=== PATIENT | female | born 1985 ===

== ENCOUNTER 2017-04-12 09:40 | Day surgery (SDC) | payer BC ==
[2017-04-06 11:05] VITALS: BMI 25.9
[2017-04-12] MEDS ORDERED: cefOXitin IV 2 gm in Dextrose 2 GM/50 ML BAG IVPB ONE (12:52)
[2017-04-12] MEDS ORDERED: Bupivacaine HCl 0.5% PF (10 ml) Inj ONE (12:52)
[2017-04-12] MEDS ORDERED: Lactated Ringer's 1,000 ML IV ONE ×2 (13:00→14:20)
[2017-04-12] MEDS ORDERED: Midazolam 2 MG/2 ML VIAL ONE (13:06)
[2017-04-12] MEDS ORDERED: Propofol 10 mg/ml Inj (20 ML) ONE (13:06)
[2017-04-12] MEDS ORDERED: Succinylcholine Chloride 20 mg/ml Syr (5 ml) IV ONE (13:28)
[2017-04-12] MEDS ORDERED: Rocuronium 10 mg/ml (5 ml) ONE (13:28)
[2017-04-12] MEDS ORDERED: Neostigmine Methylsulfate 3mg/3ml Syringe IV ONE (13:28)
--- NOTE | 2017-04-12 14:19 | PCM.SURG1 ---
Surgeon's Initial Post Op Note - Surgeon's Notes Surgeon: Dr. Tobar [employer] Analyst: Type of Anesthesia: General Endo Anesthesia Administered By: Dr. Rebollar Pre-Operative Diagnosis: 31 yo that desires permanent sterilization , chronic pelvic pain, Chronic salpingitis Operative Findings: Multiple adhesion Av uterus , nl ovaries, Peutz hugs vidya Post-Operative Diagnosis: same as above Operation Performed: Laparoscopic Bilateral Salpingectomy, Lysis of adhesion Specimen/Specimens Removed: Bilateral tubes Estimated Blood Loss: EBL {In ML}: 10 Blood Products Given: N/A Drains Used: No Drains Post-Op Condition: Good Date of Surgery/Procedure: 04/12/17 Time of Surgery/Procedure: 14:19
[2017-04-12] MEDS ORDERED: HYDROmorphone 0.5 mg/0.5 ml ISec IVP PRN (14:23)
[2017-04-12 14:42] VITALS: O2SAT 100
[2017-04-12 16:43] VITALS: RESP 16; TEMP 97.2
[2017-04-12 19:01] VITALS: BP 102/62; PULSE 99
--- NOTE | 2017-04-13 02:32 | OP ---
PROCEDURE DATE: 04/12/2017 PREOPERATIVE DIAGNOSES: A 31-year-old female with desired permanent sterilization, chronic pelvic pain, chronic salpingitis. POSTOPERATIVE DIAGNOSES: A 31-year-old female with desired permanent sterilization, chronic pelvic pain, chronic salpingitis. PROCEDURES: Laparoscopic bilateral salpingectomy, lysis of adhesions. SURGEON: Dr. Tobar. ORAL AND MAXILLOFACIAL SURGERY: Dr. Wolfe. TYPE OF ANESTHESIA: General LMA. ANESTHESIOLOGIST: Dr. Bender. COMPLICATIONS: None. ESTIMATED BLOOD LOSS: 10 mL. INTRAVENOUS FLUIDS: 1100. URINE OUTPUT: 200 mL. SPECIMEN: Right and left tube. DESCRIPTION OF PROCEDURE: The patient was informed of the risk, benefits, and alternatives of the procedure. Risk factors included infection, bleeding, damage of surrounding organs and tissues, complications from anesthesia, and possible . After informed consent was obtained, she was then taken to the operating room, prepped and draped in normal sterile fashion, placed in dorsal lithotomy position. A weighted-speculum was placed into the vagina and the anterior lip of the cervix was grasped with a single-toothed tenaculum. The uterus was gently sounded to approximately 8 cm. A HUMI was then placed in order to manipulate the uterus. Once that was completed, the weighted speculum and tenaculum were then removed. Attention was then turned to the abdomen. Open laparoscopy approach was performed due to the history of prior surgeries. Once we were into the abdominal cavity under direct visualization, 4 liters of CO2 gas was given and a surveillance of the uterine cavity was then performed and noted she had multiple adhesions due to prior surgery. In that particular instance, a right and a left trocar was placed under direct visualization and no complication was noted. In that particular instance, attention was then turned to the right tube, which was followed all the way down to her fimbriated end with the LigaSure device, was used to transect the mesosalpinx inferior to the fallopian tube, then trisected the fallopian tube proximal end, that was then removed. The same was done to the left tube. Using the LigaSure, it was removed. Excellent hemostasis was noted. It was then removed with the help of Dr. Wolfe to the EndoCatch with the trocar. Upon completion, all trocars were removed off the abdomen. But, prior to that, irrigation was then performed. Everything was hemodynamically stable. There was no bleeding noted. The incision was closed with 4-0 Monocryl. Instruments and lap counts were correct x2. The patient was then taken to recovery room in stable condition and instructed to follow up in the office in approximately 2 weeks. Kyleigh Tobar MD
== END 2017-04-12 19:04 | disposition home or self-care (01) ==
LOC: C.SDS 09:40
PROVIDERS: ATTEND Obstetrics & Gynecology
DX: Z30.2 Encounter for sterilization (principal); N70.11 Chronic salpingitis; G89.29 Other chronic pain
CPT/HCPCS: 58661; 88305; J0694; J1170; J1885; J2250; J2405; J2704; J2710; J3010; J7120

== ENCOUNTER 2017-06-09 10:36 | Emergency (ER) | payer BC ==
[2017-06-09 10:37] VITALS: BMI 25.9
[2017-06-09 13:37] LABS: HCG,QUALITATIVE URINE NEGATIVE (NEGATIVE)
--- NOTE | 2017-06-09 13:48 | C.PDOC ---
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 Patient admits to chronic headache for which she takes ibuprofen and was referred to ENT specialist by PMD since diagnosis of Rhinoscleroma is unsure. Patient has pending biopsy results and currently denies vomiting, diarrhea, congestion, cough, change in vision or any other complaints at this time. Time Seen by Provider: 06/09/17 13:08 Chief Complaint (Nursing): Dizziness/Lightheaded History Per: Patient History/Exam Limitations: no limitations Onset/Duration Of Symptoms: Days Current Symptoms Are (Timing): Still Present Past Medical History Reviewed: Historical Data, Nursing Documentation, Vital Signs Vital Signs: Last Vital Signs Temp 98.1 F 06/09/17 11:00 Pulse 73 06/09/17 11:00 Resp 18 06/09/17 11:00 BP 100/68 06/09/17 11:00 Pulse Ox 98 06/09/17 15:03 - Medical History PMH: Gall Bladder Disease, HTN, Malignancy (ovarian ) Surgical History: Cholecystectomy Family History: States: No Known Family Hx - Social History Hx Alcohol Use: No Hx Substance Use: No - Immunization History Hx Tetanus Toxoid Vaccination: No Hx Influenza Vaccination: Yes Hx Pneumococcal Vaccination: No Review Of Systems Constitutional: Negative for: Fever, Chills Cardiovascular: Positive for: Light Headedness Respiratory: Negative for: Cough Gastrointestinal: Negative for: Nausea, Vomiting Neurological: Positive for: Weakness, Headache, Dizziness. Negative for: Numbness Physical Exam - Physical Exam Appears: Non-toxic, No Acute Distress Skin: Warm, Dry, No Rash Head: Atraumatic, Normacephalic Eye(s): bilateral: Normal Inspection Oral Mucosa: Moist Neck: Normal ROM, Supple Cardiovascular: Rhythm Regular Respiratory: Normal Breath Sounds, No Rales, No Rhonchi, No Wheezing Gastrointestinal/Abdominal: Soft, No Tenderness, No Guarding, No Rebound Neurological/Psych: Oriented x3, Normal Speech, Normal Cognition, Normal Motor, Normal Sensation Gait: Steady ED Course And Treatment - Laboratory Results Result Diagrams: 06/09/17 13:44 06/09/17 13:44 Lab Interpretation: Abnormal (CBC and CMP unremarkable. Urine has moderate bacteria and is nitrite +) O2 Sat by Pulse Oximetry: 98 (RA) Pulse Ox Interpretation: Normal - CT Scan/US CT head Other Rad Studies (CT/US): Read By Radiologist, Radiology Report Reviewed CT/US Interpretation: Accession No. : [id number]. Patient Name / ID : PABLITO CORONA / [id number]. Exam Date : 06/09/2017 14:42:26 ( Approved ). Study Comment : Sex / Age : F / 31Y. Creator : Karli Gautam. Dictator : Brenda Zapien MD. Direct Marketing Manager : Sheriffs Officer : Brenda Zapien MD. Approver2 : Report Date : 06/09/2017 15:00:52. My Comment : . PROCEDURE: CT HEAD WITHOUT CONTRAST. HISTORY: Headache. COMPARISON: None available. TECHNIQUE: Axial computed tomography images were obtained through the head/brain without intravenous contrast. Radiation dose: Total exam DLP = 822.35 mGy-cm. This CT exam was performed using one or more of the following dose reduction techniques: Automated exposure control, adjustment of the mA and/or kV according to patient size, and/or use of iterative reconstruction technique. FINDINGS: HEMORRHAGE: No intracranial hemorrhage. BRAIN: No mass effect or edema. No atrophy or chronic microvascular ischemic changes. VENTRICLES: No hydrocephalus. CALVARIUM: Unremarkable. PARANASAL SINUSES: Unremarkable as visualized. No significant inflammatory changes. MASTOID AIR CELLS: Unremarkable as visualized. No inflammatory changes. OTHER FINDINGS: None. IMPRESSION: No acute intracranial pathology identified. Reevaluation Time: 15:16 Reassessment Condition: Improved (Patient is in no distress but still c/o feeling weak.) Disposition Counseled Patient/Family Regarding: Studies Performed, Diagnosis, Need For Followup, Rx Given - Disposition Referrals: Crissy Craven MD [Medical Doctor] - Disposition: HOME/ ROUTINE Disposition Time: 15:21 Condition: STABLE Prescriptions: Nitrofurantoin Macrocrystals [Macrobid] 1 cap PO BID #14 cap Instructions: General Headache (ED), Urinary Tract Infection in Women (ED) Forms: [employer] (Lithuanian) Print Language: CHILEAN - Clinical Impression Clinical Impression: Headache, UTI (urinary tract infection) - Scribe Statement The provider has reviewed the documentation as recorded by the Mitchellibgaetano Soni All medical record entries made by the Mitchellibgaetano were at my direction and personally dictated by me. I have reviewed the chart and agree that the record accurately reflects my personal performance of the history, physical exam, medical decision making, and the department course for this patient. I have also personally directed, reviewed, and agree with the discharge instructions and disposition.
[2017-06-09 13:49] LABS: BASO % 0.7 % (0.0-2.0); EOS # 0.4 K/uL (0.0-0.7); EOS % 7.1 % (0.0-4.0); HEMOGLOBIN 13.8 g/dL (11.0-16.0); LYMPH # 2.4 K/uL (1.0-4.3); LYMPH % 42.4 % (20.0-40.0); MEAN CELL VOLUME 85.4 fL (81.0-99.0); MEAN CORPUSCULAR HEMOGLOBIN 30.1 pg (27.0-31.0); MEAN CORPUSCULAR HGB CONC 35.2 g/dL (33.0-37.0); MONO # 0.3 K/uL (0.0-0.8); MONO % 5.4 % (0.0-10.0); NEUT # 2.5 K/uL (1.8-7.0); NEUT % 44.4 % (50.0-75.0); RBC 4.58 Mil/uL (3.80-5.20); RED CELL DISTRIBUTION WIDTH 12.5 % (11.5-14.5); WHITE BLOOD COUNT 5.6 K/uL (4.8-10.8)
[2017-06-09 14:00] LABS: BLOOD UREA NITROGEN 9 mg/dL (7-17); GFR AFRICAN-AMERICAN > 60; GFR NON-AFRICAN AMERICAN > 60
[2017-06-09 14:01] LABS: ALB/GLOB RATIO 1.2 (1.0-2.1); ALT/SGPT 44 U/L (9-52); AST/SGOT 26 U/L (14-36)
[2017-06-09 14:16] LABS: SQUAMOUS EPITHIAL 21 /hpf (0-5); URINE BACTERIA MANY (<OCC); URINE BILIRUBIN NEGATIVE (NEGATIVE); URINE BLOOD NEGATIVE (NEGATIVE); URINE CLARITY Hazy (Clear); URINE COLOR Yellow (YELLOW); URINE GLUCOSE (UA) NORMAL (Normal); URINE LEUKOCYTE ESTERASE NEG Leu/uL (Negative); URINE NITRATE POSITIVE (NEGATIVE); URINE PROTEIN NEGATIVE (NEGATIVE); URINE UROBILINOGEN NORMAL mg/dL (0.2-1.0)
--- NOTE | 2017-06-09 15:12 | CT ---
PROCEDURE: CT HEAD WITHOUT CONTRAST. HISTORY: Headache COMPARISON: None available. TECHNIQUE: Axial computed tomography images were obtained through the head/brain without intravenous contrast. Radiation dose: Total exam DLP = 822.35 mGy-cm. This CT exam was performed using one or more of the following dose reduction techniques: Automated exposure control, adjustment of the mA and/or kV according to patient size, and/or use of iterative reconstruction technique. FINDINGS: HEMORRHAGE: No intracranial hemorrhage. BRAIN: No mass effect or edema. No atrophy or chronic microvascular ischemic changes. VENTRICLES: No hydrocephalus. CALVARIUM: Unremarkable. PARANASAL SINUSES: Unremarkable as visualized. No significant inflammatory changes. MASTOID AIR CELLS: Unremarkable as visualized. No inflammatory changes. OTHER FINDINGS: None. IMPRESSION: No acute intracranial pathology identified.
[2017-06-09 15:33] VITALS: BP 106/73; PULSE 62; RESP 20; TEMP 98.6; O2SAT 99
== END 2017-06-09 15:35 | disposition home or self-care (01) ==
LOC: C.ER 10:36
DX: R51 Headache (principal); N39.0 Urinary tract infection, site not specified; I10 Essential (primary) hypertension

== ENCOUNTER 2018-07-05 10:19 | Observation (INO) | payer BC ==
[2018-07-05 10:31] VITALS: BMI 28.3
[2018-07-05 10:56] LABS: BASO % 0.8 % (0.0-2.0); EOS # 0.4 K/uL (0.0-0.7); EOS % 7.6 % (0.0-4.0); HEMOGLOBIN 12.7 g/dL (11.0-16.0); LYMPH # 1.7 K/uL (1.0-4.3); LYMPH % 33.1 % (20.0-40.0); MEAN CORPUSCULAR HEMOGLOBIN 25.9 pg (27.0-31.0); MEAN CORPUSCULAR HGB CONC 32.2 g/dL (33.0-37.0); MEAN PLATELET VOLUME 9.6 fL (7.2-11.7); MONO # 0.3 K/uL (0.0-0.8); MONO % 6.6 % (0.0-10.0); NEUT # 2.7 K/uL (1.8-7.0); NEUT % 51.9 % (50.0-75.0); NRBC % 0.1 % (0.0-2.0); RBC 4.9 Mil/uL (3.80-5.20); RED CELL DISTRIBUTION WIDTH 14.6 % (11.5-14.5); WHITE BLOOD COUNT 5.1 K/uL (4.8-10.8)
[2018-07-05 10:57] LABS: MEAN CELL VOLUME 80.3 fL (81.0-99.0)
[2018-07-05 11:04] LABS: INR 1.1; PROTHROMBIN TIME 11.7 SECONDS (9.7-12.2)
--- NOTE | 2018-07-05 11:06 | CT ---
Date of service: 07/05/2018 PROCEDURE: CT HEAD WITHOUT CONTRAST. HISTORY: Code Stroke COMPARISON: None available. TECHNIQUE: Axial computed tomography images were obtained through the head/brain without intravenous contrast. Radiation dose: Total exam DLP = 1055.49 mGy-cm. This CT exam was performed using one or more of the following dose reduction techniques: Automated exposure control, adjustment of the mA and/or kV according to patient size, and/or use of iterative reconstruction technique. FINDINGS: HEMORRHAGE: No acute parenchymal, subarachnoid or extra-axial hemorrhage. BRAIN: No evidence of large acute infarct. No significant r chronic microvascular ischemic changes identified. Note the possibility of a small hyperacute infarct cannot be excluded on this exam. VENTRICLES: No obstructive hydrocephalus. CALVARIUM: Unremarkable. PARANASAL SINUSES: Unremarkable as visualized. No significant calvarium intact inflammatory changes. MASTOID AIR CELLS: Unremarkable as visualized. No inflammatory changes. OTHER FINDINGS: None. IMPRESSION: No acute intracranial hemorrhage. No evidence of large acute infarct. No significant microvascular ischemic disease.. Note that the possibility of a small hyperacute infarct cannot excluded on this study. These findings discussed with Dr. Dewitt at 10:58 a.m. with written down and read back verification.
[2018-07-05 11:21] LABS: ALB/GLOB RATIO 1.6 (1.0-2.1); ALBUMIN 4.4 g/dL (3.5-5.0); ALT/SGPT 36 U/L (9-52); AST/SGOT 31 U/L (14-36); BLOOD UREA NITROGEN 8 mg/dL (7-17); CALCIUM 8.5 mg/dl (8.6-10.4); GFR NON-AFRICAN AMERICAN > 60; HDL CHOLESTEROL 32 mg/dL (30-70)
--- NOTE | 2018-07-05 11:28 | CT ---
Date of service: 2018-07-05 10:56:23 PROCEDURE: CT Angiography of the neck and brain HISTORY: Code stroke COMPARISON: None. TECHNIQUE: Contiguous axial images of the neck were obtained from the level of the vertex of the skull to the superior mediastinum in the arteriographic phase of enhancement. Coronal and sagittal reformats or also generated. IV contrast dose: 100 cc Visipaque 320 Radiation dose: Total exam DLP = 520.56 mGy-cm. This CT exam was performed using one or more of the following dose reduction techniques: Automated exposure control, adjustment of the mA and/or kV according to patient size, and/or use of iterative reconstruction technique. FINDINGS: The aortic arch widely patent with no significant atherosclerotic plaque. The right brachiocephalic and left common carotid artery arise from a common trunk. The common carotid arteries and carotid bifurcations are widely patent with no evidence of significant stenosis. No evidence of dissection. The distal internal carotid arteries including the petrous cavernous and supraclinoid segments also widely patent. Both vertebral arteries are patent throughout neither which appear more dominant than the other. Basilar artery is patent. The visualized major branches of the mwwutt-ai-Gwuhac are also patent with no evidence of occlusions nor significant stenosis. No evidence of large aneurysm seen along the avuqyd-qc-Yarael.. No evidence of vascular malformation. The distal branches of the anterior middle and posterior cerebral arteries are relatively symmetric. OTHER FINDINGS: There is a small calcification seen in the upper/mid aspect of the right lobe of the thyroid gland. Consider follow-up thyroid ultrasound further evaluation. IMPRESSION: Normal CT Angiography of the neck.
[2018-07-05 11:33] LABS: LDL CHOLESTEROL 77 mg/dL (0-129)
--- NOTE | 2018-07-05 12:19 | RAD ---
Date of service: 2018-07-05 11:13:46 HISTORY: Code Stroke COMPARISON: No prior. FINDINGS: LUNGS: No active pulmonary disease. PLEURA: No significant pleural effusion identified, no pneumothorax apparent. CARDIOVASCULAR: No aortic atherosclerotic calcification present. Normal cardiac size. No pulmonary vascular congestion. OSSEOUS STRUCTURES: No significant abnormalities. VISUALIZED UPPER ABDOMEN: Normal. OTHER FINDINGS: None. IMPRESSION: No active disease.
--- NOTE | 2018-07-05 14:24 | C.PDOC ---
History Of Present Illness 33 y/o female presents to ER for evaluation of syncopal episode which occurred earlier at home today. Upon arrival in triage, patient states that she had a neurological event involving facial palsy while she was in [place] 3 years ago. Therefore, Code Stroke was called for patient. Patient reports that she has headache and dizziness for the past few days.Patient notes that she had syncopal episode after she got up from her bed in the morning today. She landed on the ground and hit her head on the left side. Her helped her get up. he is still complaining of headache and mild dizziness. Denies having CP,SOB, nausea, vomiting, and abdominal pain. Of note, patient has history of tubal ligation. Chief Complaint (Nursing): Dizziness/Lightheaded History Per: Patient History/Exam Limitations: no limitations Onset/Duration Of Symptoms: Days Current Symptoms Are (Timing): Still Present Severity: Moderate Past Medical History Reviewed: Historical Data, Nursing Documentation, Vital Signs Vital Signs: Last Vital Signs Temp 98.3 F 07/05/18 10:34 Pulse 63 07/05/18 12:37 Resp 12 07/05/18 12:37 BP 101/57 L 07/05/18 12:37 Pulse Ox 100 07/05/18 12:37 - Medical History PMH: Gall Bladder Disease, HTN, Malignancy (ovarian ) Denies: Diabetes, Hepatitis Surgical History: Cholecystectomy Family History: States: No Known Family Hx - Social History Hx Alcohol Use: No Hx Substance Use: No - Immunization History Hx Tetanus Toxoid Vaccination: No Hx Influenza Vaccination: Yes (2018) Hx Pneumococcal Vaccination: No Review Of Systems Except As Marked, All Systems Reviewed And Found Negative. Constitutional: Negative for: Fever, Chills Cardiovascular: Negative for: Chest Pain Respiratory: Negative for: Shortness of Breath Gastrointestinal: Negative for: Nausea, Vomiting, Abdominal Pain Neurological: Positive for: Headache, Dizziness Physical Exam - Physical Exam Appears: Non-toxic, No Acute Distress, Other (awake,alert,groggy) Skin: Normal Color, Warm, Dry Head: Atraumatic, Normacephalic Eye(s): bilateral: Normal Inspection, PERRL, EOMI Ear(s): Bilateral: Normal Nose: Normal Oral Mucosa: Moist Throat: Normal, No Erythema Neck: Supple Chest: Symmetrical Cardiovascular: Rhythm Regular Respiratory: Normal Breath Sounds, No Rales, No Wheezing Gastrointestinal/Abdominal: Normal Exam, Soft, No Tenderness, No Guarding, No Rebound Extremity: Normal ROM Neurological/Psych: Oriented x3, Normal Speech, Normal Motor, Normal Sensation Gait: Steady ED Course And Treatment - Laboratory Results Result Diagrams: 07/05/18 10:52 07/05/18 10:52 Lab Results: PT 11.7 SECONDS (9.7-12.2) 07/05/18 10:52 INR 1.1 07/05/18 10:52 APTT 33 SECONDS (21-34) 07/05/18 10:52 Troponin I < 0.0120 ng/mL (0.00-0.120) 07/05/18 10:52 Total Bilirubin 1.1 mg/dL (0.2-1.3) 07/05/18 10:52 AST 31 U/L (14-36) 07/05/18 10:52 ALT 36 U/L (9-52) 07/05/18 10:52 Alkaline Phosphatase 78 U/L (38-126) 07/05/18 10:52 Total Protein 7.2 g/dL (6.3-8.3) 07/05/18 10:52 Albumin 4.4 g/dL (3.5-5.0) 07/05/18 10:52 Globulin 2.8 gm/dL (2.2-3.9) 07/05/18 10:52 Albumin/Globulin Ratio 1.6 (1.0-2.1) 07/05/18 10:52 O2 Sat by Pulse Oximetry: 100 (RA) Pulse Ox Interpretation: Normal Medical Decision Making Medical Decision Making: Plan: --Labs --UA --CXR --CT-Head --CTA-Head --Tylenol PO Disposition Discussed With : Neil Rand Counseled Patient/Family Regarding: Studies Performed - Disposition Disposition: HOME/ ROUTINE Disposition Time: 14:23 Condition: GUARDED Forms: [facility] (Mozambican) - POA Present On Arrival: None - Clinical Impression Clinical Impression: Syncope, Dizziness - Scribe Statement The provider has reviewed the documentation as recorded by the Jesus Ayala Provider Attestation: All medical record entries made by the Mitchellibe were at my direction and personally dictated by me. I have reviewed the chart and agree that the record accurately reflects my personal performance of the history, physical exam, medical decision making, and the department course for this patient. I have also personally directed, reviewed, and agree with the discharge instructions and disposition. Decision To Admit - Pt Status Changed To: Hospital Disposition Of: Observation - . Bed Request Type: Telemetry Admitting Physician: Neil Rand Patient Diagnosis: Syncope, Dizziness
[2018-07-05 15:04] LABS: HCG,QUALITATIVE URINE NEGATIVE (NEGATIVE); SQUAMOUS EPITHIAL 6 /hpf (0-5); URINE BILIRUBIN NEGATIVE (NEGATIVE); URINE CLARITY Hazy (Clear); URINE COLOR Yellow (YELLOW); URINE GLUCOSE (UA) NORMAL (Normal); URINE LEUKOCYTE ESTERASE NEG Leu/uL (Negative); URINE PROTEIN NEGATIVE (NEGATIVE); URINE UROBILINOGEN NORMAL mg/dL (0.2-1.0)
[2018-07-05 15:07] LABS: URINE BLOOD TRACE (NEGATIVE)
[2018-07-05 15:42] LABS: BARBITURATES, UR NEGATIVE (NEGATIVE); BENZODIAZEPINES, UR NEGATIVE (NEGATIVE); OPIATES, UR NEGATIVE (NEGATIVE); PHENCYCLIDINE, UR NEGATIVE (NEGATIVE)
--- NOTE | 2018-07-05 17:55 | MRI ---
Date of service: 07/05/2018 PROCEDURE: MRI BRAIN WITHOUT CONTRAST HISTORY: syncope COMPARISON: CT head without contrast from 07/05/2018 TECHNIQUE: Multiplanar, multisequence MR images of the brain were obtained without intravenous contrast enhancement. FINDINGS: HEMORRHAGE: None DWI: No evidence of an acute or early subacute infarction. BRAIN PARENCHYMA: There are few scattered tiny T2/FLAIR hyperintense foci in the subcortical supratentorial white matter. The cerebellar tonsils are low-lying. There is no mass, mass effect or abnormal extra-axial fluid collection. There is no territorial infarction. Otherwise, the midline sagittal structures are normal. VENTRICLES: The ventricles are normal in size, shape and configuration. CRANIUM: There is normal bone marrow signal pattern. ORBITS: Grossly unremarkable. PARANASAL SINUSES/MASTOIDS: Predominantly clear. VASCULAR SYSTEM: There are normal signal voids in the larger intracranial arteries. OTHER FINDINGS: None. IMPRESSION: No acute intracranial abnormality. Minimal supratentorial subcortical white matter changes are strictly nonspecific. The differential considerations include migraine headache effect, gliosis, early chronic microangiopathic changes, Lyme disease, vasculitis and demyelinating disease including multiple sclerosis. Clinical follow-up is advised.
--- NOTE | 2018-07-05 18:26 | CARD ---
APPROVED REPORT Date of service: 07/05/2018 EXAM: Two-dimensional and M-mode echocardiogram with Doppler and color Doppler. INDICATION Syncope 2D DIMENSIONS IVSd0.7 (0.7-1.1cm)LVDd4.3 (3.9-5.9cm) PWd0.7 (0.7-1.1cm)LA Zmvdaj71 (18-58mL) LVDs2.7 (2.5-4.0cm)FS (%) 37.9 % LVEF (%)68.3 (>50%)LVEF (Lawrence's)63.90 % M-Mode DIMENSIONS Left Atrium (MM)2.87 (2.5-4.0cm)IVSd0.52 (0.7-1.1cm) Aortic Root2.86 (2.2-3.7cm)LVDd5.27 (4.0-5.6cm) Aortic Cusp Exc.2.03 (1.5-2.0cm)PWd0.46 (0.7-1.1cm) FS (%) 35 %LVDs3.44 (2.0-3.8cm) LVEF (%)63 (>50%) Mitral Valve MV E Vpkalzbm14.9cm/sMV A Qymktaus06.6cm/sE/A ratio1.4 TDI Lateral E' Peak V15.19cm/sMedial E' Peak V11.09cm/sE/Lateral E'5.3 E/Medial E'7.2 Tricuspid Valve TR Peak Waeqfypd949fq/sTR Peak Gr.13fvUxRZXH27wjVn LEFT VENTRICLE The left ventricle is normal size. There is normal left ventricular wall thickness. Left ventricle systolic function is normal. The Ejection Fraction is 60-65%. There is normal LV segmental wall motion. The left ventricular diastolic function is normal. No left ventricle thrombus noted on this study. RIGHT VENTRICLE The right ventricle is normal size. The right ventricular systolic function is normal. ATRIA The left atrium size is normal. The right atrium size is normal. AORTIC VALVE The aortic valve is mildly sclerotic. The aortic valve is trileaflet. No aortic regurgitation is present. There is no aortic valvular stenosis. There is no aortic valvular vegetation. MITRAL VALVE Mitral annular calcification is mild. There is no evidence of mitral valve prolapse. There is no mitral valve stenosis. There is no mitral valve regurgitation noted. TRICUSPID VALVE The tricuspid valve is normal in structure. There is mild tricuspid regurgitation. Right ventricular systolic pressure is estimated at less than 30 mmHg. There is no pulmonary hypertension. There is no tricuspid valve prolapse or vegetation. There is no tricuspid valve stenosis. PULMONIC VALVE The pulmonic valve is not well visualized. There is trace pulmonic valvular regurgitation. GREAT VESSELS The aortic root is normal in size. The IVC is normal in size and collapses >50% with inspiration. PERICARDIAL EFFUSION There is no pericardial effusion. There is no pleural effusion. <Conclusion> The left ventricle is normal size. Left ventricle systolic function is normal. The Ejection Fraction is 60-65%. The left ventricular diastolic function is normal. The right ventricle is normal size. The right ventricular systolic function is normal. The left atrium size is normal. The right atrium size is normal. There is mild tricuspid regurgitation. There is trace pulmonic valvular regurgitation.
[2018-07-05 22:57] LABS: CK-MB 0.55 ng/mL (0.0-3.38)
--- NOTE | 2018-07-06 11:29 | VASCLAB ---
Date of service: 07/05/2018 PROCEDURE: Carotid Duplex Exam. HISTORY: syncope COMPARISON: None available. TECHNIQUE: Grayscale and duplex Doppler evaluation of the cervical carotid and vertebral arteries were performed. The common carotid, carotid bifurcations and cervical Internal Carotid Artery (ICA) and proximal External Carotid Artery (ECA) were evaluated. The vertebral arteries were evaluated for gross patency and flow direction. Report prepared by Ulices Welsh, BS, RVT FINDINGS: RIGHT CAROTID ARTERIES: 1. Common Carotid Artery: No significant focal plaque formation of the right common carotid artery. Maximum Peak Systolic velocity: 102 cm/sec: End-diastolic velocity 26 cm/sec. 2. Carotid Bifurcation: plaque formation. Maximum Peak Systolic velocity: 78 cm/sec: End-diastolic velocity 26 cm/sec. 3. Internal Carotid Artery: Plaque description: 3.1. Proximal Segment: Peak systolic velocity 105 cm/sec: End-diastolic velocity 36 cm/sec - % stenosis 0-15% 3.2. Middle Segment: Peak systolic velocity 90 cm/sec: End-diastolic velocity 38 cm/sec - % stenosis 0-15% 3.3. Distal Segment: Peak systolic velocity 68 cm/sec: End-diastolic velocity 32 cm/sec - % stenosis 0-15% 4. External Carotid Artery: No significant focal plaque formation. Peak systolic velocity 80 cm/sec 5. ICA/CCA Ratio: 1.0 LEFT CAROTID ARTERIES: 1. Common Carotid Artery: No significant focal plaque formation of the left common carotid artery. Maximum Peak Systolic velocity: 94 cm/sec: End-diastolic velocity 31 cm/sec. 2. Carotid Bifurcation: plaque formation. Maximum Peak Systolic velocity: 75 cm/sec: End-diastolic velocity 21 cm/sec. 3. Internal Carotid Artery: Plaque description: 3.1. Proximal Segment: Peak systolic velocity 107 cm/sec: End-diastolic velocity 30 cm/sec - % stenosis 0-15% 3.2. Middle Segment: Peak systolic velocity 56 cm/sec: End-diastolic velocity 27 cm/sec - % stenosis 0-15% 3.3. Distal Segment: Peak systolic velocity 48 cm/sec: End-diastolic velocity 25 cm/sec - % stenosis 0-15% 4. External Carotid Artery: No significant focal plaque formation. Peak systolic velocity 78 cm/sec 5. ICA/CCA Ratio: 1.1 VERTEBRAL ARTERIES: 1. Right Vertebral Artery: The right vertebral artery flow direction is antegrade. 2. Left Vertebral Artery: The left vertebral artery flow direction is antegrade. OTHER FINDINGS: 1. Right Brachial Blood pressure: 110 mmHg. 2. Left Brachial Blood pressure: 100 mmHg. 3. No atherosclerotic calcification present IMPRESSION: RIGHT: Duplex scan does not suggest hemodynamically significant stenosis of the right extracranial carotid arteries. LEFT: Duplex scan does not suggest hemodynamically significant stenosis of the left extracranial carotid arteries.
--- NOTE | 2018-07-06 21:28 | CP.PCM.HP ---
Present on Admission - Present on Admission Any Indicators Present on Admission: No Past Patient History - Past Medical History & Family History Past Medical History?: Yes - Past Social History Smoking Status: Never Smoked - CARDIAC Hx Hypertension: Yes - HEENT Other/Comment: hx rhinoscleroma - MUSCULOSKELETAL/RHEUMATOLOGICAL Hx Musculoskeletal Disorders: Yes Hx Back Pain: Yes (LOWER BACK"I'M GETTING THERAPY FOR IT.") - GASTROINTESTINAL Hx Gall Bladder Disease: Yes - PSYCHIATRIC Hx Substance Use: No - SURGICAL HISTORY Hx Cholecystectomy: Yes - ANESTHESIA Hx Anesthesia: Yes Hx Anesthesia Reactions: No Hx Malignant Hyperthermia: No Meds Allergies/Adverse Reactions: Allergies Allergy/AdvReac Type Severity Reaction Status Date / Time No Known Allergies Allergy Verified 07/05/18 10:29 Results - Vital Signs Recent Vital Signs: Last Vital Signs Temp 97.5 F L 07/06/18 16:14 Pulse 88 07/06/18 16:14 Resp 20 07/06/18 16:14 BP 106/69 07/06/18 16:14 Pulse Ox 96 07/06/18 16:14 - Labs Result Diagrams: 07/05/18 10:52 07/05/18 10:52 Labs: Laboratory Results - last 24 hr 07/05/18 22:20 Total Creatine Kinase 59 CK-MB (Mass) 0.55 Troponin I < 0.0120
[2018-07-07 07:20] LABS: BASO % 0.5 % (0.0-2.0); EOS # 0.5 K/uL (0.0-0.7); EOS % 8.3 % (0.0-4.0); HEMOGLOBIN 11.8 g/dL (11.0-16.0); LYMPH % 32.9 % (20.0-40.0); MEAN CORPUSCULAR HEMOGLOBIN 26.4 pg (27.0-31.0); MEAN PLATELET VOLUME 10.2 fL (7.2-11.7); MONO # 0.4 K/uL (0.0-0.8); MONO % 6.5 % (0.0-10.0); NEUT # 3.1 K/uL (1.8-7.0); NEUT % 51.8 % (50.0-75.0); RBC 4.47 Mil/uL (3.80-5.20); RED CELL DISTRIBUTION WIDTH 14.3 % (11.5-14.5)
[2018-07-07 07:54] LABS: ALB/GLOB RATIO 1.4 (1.0-2.1); ALBUMIN 3.9 g/dL (3.5-5.0); ALT/SGPT 35 U/L (9-52); AST/SGOT 24 U/L (14-36); BLOOD UREA NITROGEN 11 mg/dL (7-17); CALCIUM 8.6 mg/dl (8.6-10.4); GFR NON-AFRICAN AMERICAN > 60
[2018-07-07 08:12] VITALS: PULSE 75
[2018-07-07 08:13] VITALS: BP 97/61; RESP 20; TEMP 97.5; O2SAT 100
--- NOTE | 2018-07-07 08:24 | HP ---
CHIEF COMPLAINT: Syncope. HISTORY OF PRESENT ILLNESS: This is a 33-year-old female who at home has a syncopal episode on the morning after the . 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 The patient was having headache, dizziness. According to her, she is dizzy with head movement, she is dizzy without head movement, she is dizzy lying down, she is dizzy standing up. She denies any history of dizziness with rapid head movement. She denies any nausea or vomiting. She denies any blurring of vision. The patient denies any fever, chills, or rigors. She denies any dysuria or hematuria. She was dizzy. She had syncopal episode on the day of admission. picked her up from the floor and called 911. She denies any head injury. She denies any history of headache but has mild dizziness. She denies any history of chest pain or palpitation. She denies any history of polyuria, polydipsia, or polyphagia. She denies any history of hematuria or pyuria. She denies any sneezing, itchy eyes, itchy nose. PAST MEDICAL HISTORY: Nothing significant. SOCIAL HISTORY: Nonsmoker, non-EtOH user. CURRENT MEDICATIONS: None. PHYSICAL EXAMINATION: GENERAL: A young female, in no acute distress. VITAL SIGNS: Blood pressure 101/57, pulse 53, respiratory rate 12, and temperature 98.3. SKIN: No bruises, no purpura, no petechiae, no ecchymosis. HEENT: Atraumatic and normocephalic. Negative pallor. Negative jaundice. Extraocular movements are intact. NECK: Supple. No JVD. No lymph node. No thyromegaly. No carotid bruit. CHEST: Chest wall, bilateral symmetrical expansion. LUNGS: Clear. No rales. No rhonchi. CARDIOVASCULAR SYSTEM: PMI not localized. S1 and S2, regular. No heave. No thrill. No murmur. ABDOMEN: Soft, nontender. Bowel sounds are positive. RECTAL: Refused. PELVIC: Refused. EXTREMITIES: No clubbing, cyanosis, or edema. CENTRAL NERVOUS SYSTEM: Awake, alert, and oriented x3. Cranial nerves II through XII are normal. Power 5/5 x4. Plantars are downgoing. There is horizontal nystagmus. ASSESSMENT: 1. Dizziness. 2. Vertigo. 3. Syncope and nonpositional vertigo with syncope. 4. Rule out dehydration. 5. Rule out vertebrobasilar insufficiency. 6. Rule out cardiac arrhythmia. PLAN: Admit. Detailed orders are written. Seen and examined. Neil Rand MD
--- NOTE | 2018-07-07 12:42 | CP.PCM.CON ---
History of Present Illness - History of Present Illness History of Present Illness: Neurology consult dictated. Miss Ma has a normal neurological exam and is cleared from a neurological point of view. Vestibular therapy needed outpatinet. Thank you Dr. sandoval Neurology Past Patient History - Past Medical History & Family History Past Medical History?: Yes - Past Social History Smoking Status: Never Smoked - CARDIAC Hx Hypertension: Yes - HEENT Other/Comment: hx rhinoscleroma - MUSCULOSKELETAL/RHEUMATOLOGICAL Hx Musculoskeletal Disorders: Yes Hx Back Pain: Yes (LOWER BACK"I'M GETTING THERAPY FOR IT.") - GASTROINTESTINAL Hx Gall Bladder Disease: Yes - PSYCHIATRIC Hx Substance Use: No - SURGICAL HISTORY Hx Cholecystectomy: Yes - ANESTHESIA Hx Anesthesia: Yes Hx Anesthesia Reactions: No Hx Malignant Hyperthermia: No Meds Allergies/Adverse Reactions: Allergies Allergy/AdvReac Type Severity Reaction Status Date / Time No Known Allergies Allergy Verified 07/05/18 10:29 - Medications Medications: Current Medications Acetaminophen (Tylenol 325mg Tab) 650 mg PO Q6 PRN PRN Reason: Headache Last Admin: 07/07/18 10:22 Dose: 650 mg Influenza Virus Vaccine (Flucelvax Quad [id number] Syr) 60 mcg IM .ONCE ONE Stop: 07/08/18 10:01 Meclizine HCl (Antivert) 12.5 mg PO QID SURYA Last Admin: 07/07/18 09:24 Dose: 12.5 mg Pneumococcal Polyvalent Vaccine (Pneumovax 23 Vaccine) 0.5 ml IM .ONCE ONE Stop: 07/08/18 10:01 Results - Vital Signs Recent Vital Signs: Last Vital Signs Temp 97.5 F L 07/07/18 08:00 Pulse 75 07/07/18 08:08 Resp 20 07/07/18 08:00 BP 97/61 L 07/07/18 08:00 Pulse Ox 100 07/07/18 08:18 - Labs Result Diagrams: 07/07/18 07:04 07/07/18 07:04 Labs: Laboratory Results - last 24 hr 07/07/18 07/07/18 07:04 07:04 WBC 6.0 RBC 4.47 Hgb 11.8 Hct 35.8 MCV 80.0 L MCH 26.4 L MCHC 33.0 RDW 14.3 Plt Count 171 MPV 10.2 Neut % (Auto) 51.8 Lymph % (Auto) 32.9 [place] % (Auto) 6.5 Eos % (Auto) 8.3 H Baso % (Auto) 0.5 Neut # (Auto) 3.1 Lymph # (Auto) 2.0 [place] # (Auto) 0.4 Eos # (Auto) 0.5 Baso # (Auto) 0.0 Sodium 137 Potassium 4.3 Chloride 105 Carbon Dioxide 24 Anion Gap 13 BUN 11 Creatinine 0.5 L Est GFR ( Amer) > 60 Est GFR (Non-Af Amer) > 60 Random Glucose 101 Calcium 8.6 Phosphorus 3.5 Magnesium 1.8 Total Bilirubin 1.1 AST 24 ALT 35 Alkaline Phosphatase 75 Total Protein 6.6 Albumin 3.9 Globulin 2.7 Albumin/Globulin Ratio 1.4
[2018-07-07] MEDS ORDERED: Influenza Vaccine 60 mcg/0.5 mL SYR (4YR UP) IM ONE (15:00)
[2018-07-07] MEDS ORDERED: Pneumococcal 23-Valent Vaccine IM ONE (15:00)
--- NOTE | 2018-07-07 16:37 | CP.PCM.PN ---
Subjective - Date & Time of Evaluation Date of Evaluation: 07/07/18 Time of Evaluation: 11:00 - Subjective Subjective: alert and orientedx3, denies acute pain or dizziness, NAD. Objective - Vital Signs/Intake and Output Vital Signs (last 24 hours): Temp Pulse Resp BP Pulse Ox 97.5 F L 75 20 97/61 L 100 07/07/18 08:00 07/07/18 08:08 07/07/18 08:00 07/07/18 08:00 07/07/18 08:18 - Labs Labs: 07/07/18 07:04 07/07/18 07:04 PT 11.7 SECONDS (9.7-12.2) 07/05/18 10:52 INR 1.1 07/05/18 10:52 APTT 33 SECONDS (21-34) 07/05/18 10:52 Assessment and Plan - Assessment and Plan (Free Text) Assessment: 33 year old female admitted with dizziness and headache, seen and examined. Alert and orientedx3, still with some dizziness as per patient. Cleared by the neurologist today, discussed with DR Rand, plan to discharge home today, advised to follow up with neuro and PMD in 1 week. Meclizine given to use as needed for dizziness.
--- NOTE | 2018-07-07 21:46 | CARD ---
APPROVED REPORT Date of service: 07/05/2018 EKG Measurement Heart [id number] <Conclusion> Normal sinus rhythm Normal ECG
--- NOTE | 2018-07-08 08:26 | CP.PCM.DIS ---
Provider - Provider Date of Admission: 07/05/18 16:50 Attending physician: Neil Rand MD Consults: 07/05/18 10:44 Stroke Team Consult Stat Comment: Consulting Provider: Neurohospitalist Consulting Physician: NEUROHOSP Neurohospitalist for Consult: Tu Morales Neurohospitalist for Consult: Rambo Martin Reason for Consult: code stroke Time Spent in preparation of Discharge (in minutes): 30 Hospital Course - Lab Results Lab Results: Most Recent Lab Values WBC 6.0 K/uL (4.8-10.8) 07/07/18 07:04 RBC 4.47 Mil/uL (3.80-5.20) 07/07/18 07:04 Hgb 11.8 g/dL (11.0-16.0) 07/07/18 07:04 Hct 35.8 % (34.0-47.0) 07/07/18 07:04 MCV 80.0 fL (81.0-99.0) L 07/07/18 07:04 MCH 26.4 pg (27.0-31.0) L 07/07/18 07:04 MCHC 33.0 g/dL (33.0-37.0) 07/07/18 07:04 RDW 14.3 % (11.5-14.5) 07/07/18 07:04 Plt Count 171 K/uL (130-400) 07/07/18 07:04 MPV 10.2 fL (7.2-11.7) 07/07/18 07:04 Neut % (Auto) 51.8 % (50.0-75.0) 07/07/18 07:04 Lymph % (Auto) 32.9 % (20.0-40.0) 07/07/18 07:04 [place] % (Auto) 6.5 % (0.0-10.0) 07/07/18 07:04 Eos % (Auto) 8.3 % (0.0-4.0) H 07/07/18 07:04 Baso % (Auto) 0.5 % (0.0-2.0) 07/07/18 07:04 Neut # (Auto) 3.1 K/uL (1.8-7.0) 07/07/18 07:04 Lymph # (Auto) 2.0 K/uL (1.0-4.3) 07/07/18 07:04 [place] # (Auto) 0.4 K/uL (0.0-0.8) 07/07/18 07:04 Eos # (Auto) 0.5 K/uL (0.0-0.7) 07/07/18 07:04 Baso # (Auto) 0.0 K/uL (0.0-0.2) 07/07/18 07:04 PT 11.7 SECONDS (9.7-12.2) 07/05/18 10:52 INR 1.1 07/05/18 10:52 APTT 33 SECONDS (21-34) 07/05/18 10:52 Sodium 137 mmol/L (132-148) 07/07/18 07:04 Potassium 4.3 mmol/L (3.6-5.2) 07/07/18 07:04 Chloride 105 mmol/L (98-107) 07/07/18 07:04 Carbon Dioxide 24 mmol/L (22-30) 07/07/18 07:04 Anion Gap 13 (10-20) 07/07/18 07:04 BUN 11 mg/dL (7-17) 07/07/18 07:04 Creatinine 0.5 mg/dL (0.7-1.2) L 07/07/18 07:04 Est GFR ( Amer) > 60 07/07/18 07:04 Est GFR (Non-Af Amer) > 60 07/07/18 07:04 POC Glucose (mg/dL) 115 mg/dL (65-110) H 07/05/18 10:43 Random Glucose 101 mg/dL (65-105) 07/07/18 07:04 Hemoglobin A1c 5.6 % (4.2-6.5) 07/05/18 10:52 Calcium 8.6 mg/dl (8.6-10.4) 07/07/18 07:04 Phosphorus 3.5 mg/dL (2.5-4.5) 07/07/18 07:04 Magnesium 1.8 mg/dL (1.6-2.3) 07/07/18 07:04 Total Bilirubin 1.1 mg/dL (0.2-1.3) 07/07/18 07:04 AST 24 U/L (14-36) 07/07/18 07:04 ALT 35 U/L (9-52) 07/07/18 07:04 Alkaline Phosphatase 75 U/L (38-126) 07/07/18 07:04 Total Creatine Kinase 59 U/L (30-135) 07/05/18 22:20 CK-MB (Mass) 0.55 ng/mL (0.0-3.38) 07/05/18 22:20 Troponin I < 0.0120 ng/mL (0.00-0.120) 07/05/18 22:20 Total Protein 6.6 g/dL (6.3-8.3) 07/07/18 07:04 Albumin 3.9 g/dL (3.5-5.0) 07/07/18 07:04 Globulin 2.7 gm/dL (2.2-3.9) 07/07/18 07:04 Albumin/Globulin Ratio 1.4 (1.0-2.1) 07/07/18 07:04 Triglycerides 108 mg/dL (0-149) 07/05/18 10:52 Cholesterol 123 mg/dL (0-199) 07/05/18 10:52 LDL Cholesterol Direct 77 mg/dL (0-129) 07/05/18 10:52 HDL Cholesterol 32 mg/dL (30-70) 07/05/18 10:52 Urine Color Yellow (YELLOW) 07/05/18 14:41 Urine Clarity Hazy (Clear) 07/05/18 14:41 Urine pH 7.0 (5.0-8.0) 07/05/18 14:41 Ur Specific [place] 1.051 (1.003-1.030) H 07/05/18 14:41 Urine Protein Negative mg/dL (NEGATIVE) 07/05/18 14:41 Urine Glucose (UA) Normal mg/dL (Normal) 07/05/18 14:41 Urine Ketones Negative mg/dL (NEGATIVE) 07/05/18 14:41 Urine Blood Trace (NEGATIVE) H 07/05/18 14:41 Urine Nitrate Negative (NEGATIVE) 07/05/18 14:41 Urine Bilirubin Negative (NEGATIVE) 07/05/18 14:41 Urine Urobilinogen Normal mg/dL (0.2-1.0) 07/05/18 14:41 Ur Leukocyte Esterase Neg Dylan/uL (Negative) 07/05/18 14:41 Urine WBC (Auto) 1 /hpf (0-5) 07/05/18 14:41 Urine RBC (Auto) 6 /hpf (0-3) H 07/05/18 14:41 Ur Squamous Epith Cells 6 /hpf (0-5) H 07/05/18 14:41 Urine HCG, Qual Negative (NEGATIVE) 07/05/18 14:41 Urine Opiates Screen Negative (NEGATIVE) 07/05/18 14:41 Urine Methadone Screen Negative (NEGATIVE) 07/05/18 14:41 Ur Barbiturates Screen Negative (NEGATIVE) 07/05/18 14:41 Ur Phencyclidine Scrn Negative (NEGATIVE) 07/05/18 14:41 Ur Amphetamines Screen Negative (NEGATIVE) 07/05/18 14:41 U Benzodiazepines Scrn Negative (NEGATIVE) 07/05/18 14:41 U Oth Cocaine Metabols Negative (NEGATIVE) 07/05/18 14:41 U Cannabinoids Screen Negative (NEGATIVE) 07/05/18 14:41 Blood Type O POSITIVE 07/05/18 11:09 Antibody Screen Negative 07/05/18 11:09 Discharge Plan - Discharge Medications Prescriptions: Meclizine [Antivert] 12.5 mg PO BID PRN #20 tab PRN Reason: Dizziness - Follow Up Plan Condition: GUARDED Disposition: HOME/ ROUTINE Instructions: Vertigo (a Type of Dizziness) (DC), Meclizine, Syncope (DC) Additional Instructions: Follow up with primary medical doctor in 1 week outpatient physcial therapy/ vestibular therapy as outpatient is advised meclizine PRN given Follow up with primary medical doctor in 1 week outpatient physcial therapy/ vestibular therapy as outpatient is advised meclizine PRN given Referrals: Tu Morales MD [Staff Provider] - Neil Rand MD [Staff Provider] - Rambo Martin MD [Staff Provider] -
[2018-07-08] MEDS ORDERED: Influenza Vaccine 60 mcg/0.5 mL SYR (4YR UP) IM ONE (10:00)
[2018-07-08] MEDS ORDERED: Pneumococcal 23-Valent Vaccine IM ONE (10:00)
== END 2018-07-07 15:31 | disposition home or self-care (01) ==
LOC: C.ER 10:19 → C.9E 16:50 → C.5S 18:29
PROVIDERS: ADMIT Internal Medicine; ATTEND Internal Medicine
DX: R42 Dizziness and giddiness (principal); I10 Essential (primary) hypertension
CPT/HCPCS: 36415; 70450; 70496; 70498; 70551; 71045; 80053; 80061; 81001; 82948; 83036; 83735; 84100; 84484; 84703; 85025; 85610; 85730; 86850; 86900; 90674; 90732; 93005; 93225; 93226; 93306; 93880; 95812; 97116; 97162; 97165; 97530; 97535; 99285; G0008; G0009; G0378; G0480; G8978; G8979; G8987; G8988